=== PATIENT | male | born 1950 | race Caucasian/White ===

== ENCOUNTER 2019-10-23 10:24 | Day surgery (SDC) | payer OTHER ==
[~2019-10-23] VITALS: Ht 172.7 cm; Wt 88.0 kg
[~2019-10-23 10:24] MED LIST: ZESTORETIC 20-121 E1 PO
[2019-10-23] MEDS ORDERED: ASPI81CH PO (11:48)
[2019-10-23] MEDS ORDERED: ZESTORETIC 20-1 EAC3 (11:49)
--- NOTE | 2019-10-23 12:53 | NUR ---
10/23/19 1253 Zena Silva History, Chart, Medications and Allergies reviewed before start of procedure. Patient confirms NPO status and agrees with scheduled surgery. PATIENT DETERMINED TO BE ASA APPROPRIATE FOR PROPOFOL SEDATION PRIOR TO START OF PROCEDURE BY DR. CORONADO. 3-LEAD EKG REVIEWED WITH PHYSICIAN PRIOR TO START OF PROCEDURE. MONITOR INTACT WITH CONTINUOUS PULSE OXIMETRY AND INTERMITTENT BP.
--- NOTE | 2019-10-23 13:48 | NUR ---
Patient up to Ambulate independently. Gait steady. Discharge instructions reviewed with patient. Patient verbalizes understanding. Copy given to patient to take home. Discharged via wheelchair to private car for ride home.
== END 2019-10-23 22:53 | disposition home or self-care (01) ==
LOC: ORSCMMR 10:24 → ORD 11:00 → ORSCMMR 22:53
PROVIDERS: Internal Medicine Gastroenterology
PROC: 0DBL8ZX Excision of Transverse Colon, Via Natural or Artificial Opening Endoscopic, Diagnostic (ICD-10-PCS; principal; 2019-10-23 11:00)
DX: Z12.11 Encounter for screening for malignant neoplasm of colon (principal); Z86.010 Personal history of colon polyps; D12.3 Benign neoplasm of transverse colon; E78.00 Pure hypercholesterolemia, unspecified; I10 Essential (primary) hypertension; Z79.82 Long term (current) use of aspirin; Z79.899 Other long term (current) drug therapy
CPT/HCPCS: 88305; J2704; J7120

== ENCOUNTER 2022-04-25 15:20 | Inpatient (IN) | payer OTHER, MEDICARE ==
[~2022-04-25] VITALS: Ht 172.7 cm; Wt 90.4 kg
[~2022-04-25 15:20] MED LIST changes: +ASPI81CH PO; +ZESTORETIC 20-1 EAC3
[2022-04-25] MEDS ORDERED: ATOR10 PO (15:44)
[2022-04-25 16:03] LABS: BASOPHILS PERCENT AUTO 1 % (0-2); EOSINOPHILS ABSOLUTE AUTO 0.23 K/mm3 (0.00-0.68); EOSINOPHILS PERCENT AUTO 2 % (0-6); Hematocrit 45.8 % (37.0-53.0); Hemoglobin 16.3 g/dL (13.5-17.5); IMMATURE GRAN ABSOLUTE AUTO 0.05 K/mm3 (0.00-0.10); IMMATURE GRAN PERCENT AUTO 0 % (0-1); LYMPHOCYTES ABSOLUTE AUTO 5.22 K/mm3 (0.84-5.20); LYMPHOCYTES PERCENT AUTO 39 % (21-46); MONOCYTES ABSOLUTE AUTO 0.93 K/mm3 (0.16-1.47); MONOCYTES PERCENT AUTO 7 % (4-13); Mean Corpuscular HGB 29.7 pg (26.0-34.0); Mean Corpuscular HGB Conc 35.6 g/dL (31.5-36.5); Mean Corpuscular Volume 84 fL (80-100); Mean Platelet Volume 8.9 fL (9.1-12.4); NEUTROPHILS ABSOLUTE AUTO 7.01 K/mm3 (1.96-9.15); NEUTROPHILS PERCENT AUTO 52 % (41-73); Platelet Count 207 K/mm3 (150-400); RDW Coefficient Variation 11.9 % (11.7-14.2); RDW Standard Deviation 36.2 fL (35.1-46.3); Red Blood Cell Count 5.48 M/mm3 (4.30-5.90); White Blood Cell Count 13.54 K/mm3 (4.00-11.30)
[2022-04-25 16:19] LABS: Albumin, Blood 3.6 g/dL (3.4-5.0); Albumin/Globulin Ratio 0.9 (0.8-1.8); Bilirubin, Total 0.8 mg/dL (0.1-1.0); Bun/Creatinine Ratio 16.1 (12.0-20.0); Calcium, Blood 9.1 mg/dL (8.5-10.1); Creatinine, Blood 0.99 mg/dL (0.60-1.20); Globulin, Blood 3.9 g/dL (2.2-4.0); Potassium, Blood 3.5 mmol/L (3.5-5.5); Total Protein, Blood 7.5 g/dL (6.4-8.2)
--- NOTE | 2022-04-25 18:54 | NUR ---
TRANSFER- RECIEVED PT FROM ED. FAMILY AT BEDSIDE. PT IS ALERT AND ORIENTED X4. SOB WITH EXCERTION. REPORT RECIEVED FROM BAL. PT ATE DINNER PER V.O. FROM DR. DIEHL FOR TRAY NOW AND CARDIAC DIET CHANGED TO START NOW. ON 3L NC. HAD TO INCREASE TO 6L AFTER PT WENT TO BATHROOM. BED IN THE LOWEST POSITION WITH CALL LIGHT NEAR BY.
--- NOTE | 2022-04-25 20:31 | NUR ---
[facility] OF 1046 CALLED FROM LAB. NOTIFIED. SEE NEW ORDERS FOR HEP DRIP. PATIENT IS ASYMPTOMATIC.
[2022-04-25 21:43] LABS: International Normalized Ratio 1.19; Prothrombin Time Results 12.4 Sec (9.7-11.5)
[2022-04-25] MEDS ORDERED: POTCHL20ER PO (22:49)
--- NOTE | 2022-04-26 03:25 | NUR ---
TRANSFER NOTE PATIENT WAS TRANSFEREED TO PCU ALERT AND ORIENTED X4, SOB WITH MILD EXCERTION, LUNGS DIM WITH SHALLOW BREATHS. PATIENT WAS ON TELE, NS WITH SOME PAC'S AND PVC'S PER TECH. C/O CHEST PRESSURE 2/10, NAGGING, ACHING, LOOKED TO BE IN MORE DISCOMFORT THAN REPORTING. MD ORDERED NITRO SL, HOWEVER PT FOUND TO BE HYPOTENSIVE (NEG ORTHOSTATICS). BOLUS WAS ORDERED 1000 NS, TRANSFUSING DURRING TRANSFER. PER MD, IF BP DOES NOT RECOVER, CALL BACK STAT. IV INFUSING HEP DRIP. N/V TREATED PER MAY WITHOUT RESULTS. SKIN IS DUSKY AND COOL IN EXTREMITIES. AMBULATORY WITH STAND BY TO MANAGE LINES AND O2 NEEDS. REPORT GIVEN TO MANAGER ENERGY.
--- NOTE | 2022-04-26 04:25 | NUR ---
ASSUMED CARE NOTE: ASSUMED CARE OF PT AT 0312, PT IS ALERT AND ORIENTED X4. PT C/O CHEST PAIN 06/05, STATES IT BECOMES WORSE WHEN TAKING A DEEP BREATH, OR WHEN MOVING AND TALKING. HE DENIES ANY RADIATING PAIN. NOTIFIED OF PAIN SYMPTOMS, ORDERS FOR FENTANYL GIVEN. PT ON 4-6 LITERS OF OXYGEN VIA HIGH-FLOW NASAL CANNULA, SPO2 READING IS POOR PATIENT IS COOL AND DUSKY, AND POOR CAP REFILLL NOTED IN ALL EXTREMTIES. RR IN THE LOW 20'S. PT IN SR WITH HR IN THE 90'S, SBP 90-100'S. PT IS NAUSEATED, ORDER OBTAINED FOR REGLAN. URINAL AT BEDSIDE, WILL MAINTAIN PT NPO AND ON BEDREST. WILL CONTINUE WITH PLAN OF CARE.
[2022-04-26 07:14] LABS: BASOPHILS ABSOLUTE AUTO 0.02 K/mm3 (0.00-0.23); BASOPHILS PERCENT AUTO 0 % (0-2); EOSINOPHILS PERCENT AUTO 0 % (0-6); Hematocrit 40.3 % (37.0-53.0); Hemoglobin 14.5 g/dL (13.5-17.5); IMMATURE GRAN ABSOLUTE AUTO 0.08 K/mm3 (0.00-0.10); IMMATURE GRAN PERCENT AUTO 1 % (0-1); LYMPHOCYTES ABSOLUTE AUTO 1.61 K/mm3 (0.84-5.20); LYMPHOCYTES PERCENT AUTO 10 % (21-46); MONOCYTES ABSOLUTE AUTO 0.88 K/mm3 (0.16-1.47); MONOCYTES PERCENT AUTO 6 % (4-13); Mean Corpuscular HGB 30.3 pg (26.0-34.0); Mean Corpuscular Volume 84 fL (80-100); NEUTROPHILS ABSOLUTE AUTO 13.38 K/mm3 (1.96-9.15); NEUTROPHILS PERCENT AUTO 84 % (41-73); Platelet Count 181 K/mm3 (150-400); RDW Coefficient Variation 12.3 % (11.7-14.2); RDW Standard Deviation 37.4 fL (35.1-46.3); Red Blood Cell Count 4.79 M/mm3 (4.30-5.90); White Blood Cell Count 15.97 K/mm3 (4.00-11.30)
[2022-04-26 07:30] LABS: Bun/Creatinine Ratio 19.8 (12.0-20.0); Calcium, Blood 8.2 mg/dL (8.5-10.1); Creatinine, Blood 1.16 mg/dL (0.60-1.20); Potassium, Blood 3.8 mmol/L (3.5-5.5)
--- NOTE | 2022-04-26 14:50 | NUR ---
PT ARRIVED TO ICU 11 FROM PCU 6. PT ALERT AND ORIENTED AT TIEM OF ARRIVAL, ALTHOUGH PALE AND SWEATY, BREATHING WITH A RATE IN THE 30-40S AND HAVING DIFFICULTY SPEAKING. PT HYPOTENSIVE WITH SBP IN THE 70S, MAP AT 60. DR. INFANTE NOTIFIED OF PT'S ARRIVAL AND HYPOTENSION. ORDER RECEIVED FOR 500ML BOLUS AND TO START LEVOPHED. BOLUS GOING AND LOW DOSE LEVOPHED STARTED PERIPHERALLY THROUGH IV IN THE R AC WITH GOOD BLOOD RETURN. AFTER GETTING SETTLED PT'S RESPIRATORY RATE IS IN THE 30S, STILL HAS DIFFICULTY TALKING IN LONG SENTENCES AND PALE, BUT NOT DIAPHORETIC. DR. INFANTE ORDERED TPA, GOT CONSENT FROM PT AND DISCUSSED IT WITH PT'S . POWERGLIDE BEING PLACED CURRENTLY FOR ADMINISTRATION PT'S OTHER IV DOES NOT HAVE BLOOD RETURN. PT'S LUNGS ARE CLEAR, ON 4L/NC. SR, NO EDEMA.
--- NOTE | 2022-04-26 16:43 | NUR ---
SHIFT SUMMARY PT CONTINUES ON LOW DOSE LEVOPHED FOR BP SUPPORT, SEE FLOWSHEET AND 4L/NC. HE REMAINS PALE AND A LITTLE DIAPHORETIC. RR IN THE 30S SPO2 93%. LUNGS ARE CLEAR. SR. NO VOID SINCE TRANSFER HERE. TPA HAS ABOUT 20 MINTUES LEFT ON ADMINISTRATION. MULTIPLE FAMILY MEMBERS HAVE BEEN AT THE BEDSIDE AND UPDATED. PLAN IS FOR PROCEDURE WITH DR. MCGOVERN AFTER 1800.
--- NOTE | 2022-04-26 19:33 | NUR ---
DOCTOR FROILAN IN TO SEE PATIENT, PATIENT VERBALIZED FEELING IF HE IS BREATHING BETTER. LEVOPHED TITRATED OFF. OXYGEN 4L/NC. APPEARS SOB WITH TALKING. TO FACILITY ADMINISTRATOR WITH FAMILY.
--- NOTE | 2022-04-26 21:18 | NUR ---
PATIENT BACK FROM FLIGHT RESERVATIONS MANAGER. RIGHT GROIN WITH FLOWSTASIS IN PLACE AREA SOFT AND NO SWELLING OR OOZING SEEN. PATIENT VERBALIZED UNDERSTANDING OF MIN GROIN FLEXION DUE TO FLOWSTASIS IN PLACE. PLAN TO RESTART HEPARIN PER PHARMACY, AWAITING ORDERS FROM PHARMACY. PATIENT VERBALIZED THAT HE IS FEELING BETTER, ONLY SLIGHT PAIN WITH DEEP BREATH. LEVOPHED REMAINS OFF.
--- NOTE | 2022-04-27 06:40 | NUR ---
SUMMARY PATIENT SLEEPING OFF AND ON T/O NIGHT. NO FURTHER C/O CHEST PAIN WITH DEEP BREATHS. FLOWSTASIS TO RIGHT GROIN NO OOZING OR SWELLING SEEN. LEVOPHED REMAINS OFF. HEPARIN 12 UNITS/KG/HR PER PHARMACY.
--- NOTE | 2022-04-27 09:44 | NUR ---
ASSUMED CARE OF PATIENT THIS AM AT 0700, HE DENIED ANY COMPLAINTS AT THE TIME. HE DOES STATE THAT HE STILL NOTICES TIGHTNESS IN HIS CHEST BUT IS NO LONGER UNCOMFORTABLE. HIS OXYGEN IS REMOVED AND ON ROOM AIR HIS SATS ARE 94%. HE SHARED WITH DR. MIMS THAT HE DOESN'T HAVE ANY TROUBLE WITH SLEEPING AND THAT HIS SNORES, HE DOESN'T FEEL LIKE HAVING SLEEP APNEA IS AN ISSUE. HIS BREATHING IS EVEN, LOOKS LIKE HE IS WORKING AT GETTING A DEEP BREATH BUT DENIES ANY DIFFICULTY. RIGHT GROIN SITE IS C/D/I WITH FLOWSTASIS IN PLACE, VERIFIED WITH CRO PROTOCOL FOR DISCONTINUING AND THEY STATED USUALLY 2-4 HOURS POST PROCEDURE. SITE ASSESSED AGAIN, TOGGLE LOOSENED, NO EVIDENCE OF BLEEDING. SUTURE CUT AND DEVICE REMOVED. PRESSURE HELD FOR 2 MINUTES, WITH CLEAN 2X2 PLACED WITH OPSITE DRESSING. PT REMINDED TO NOTIFY STAFF IF HE FEELS THAT THE GROIN SITE IS BLEEDING OR OOZING IS NOTED. ALSO ASKED TO PLEASE NOTIFY STAFF BEFORE GETTING UP FOR THE FIRST TIME.
--- NOTE | 2022-04-27 09:51 | NUR ---
LATE ENTRY: MAGDIEL AGREED TO ALLOW A STUDENT NURSE TO CARE FOR HIM TODAY.
--- NOTE | 2022-04-27 12:12 | NUR ---
PATIENT UP IN ROON FOR LUNCH, ONE PERSON MINIMAL ASSISST. PT TOLERATED TRANSFER WELL, NO DROP IN OXYGEN SATURATION NOTED.
--- NOTE | 2022-04-27 17:01 | NUR ---
ROOM AVAILABLE FOR PATIENT ON MEDICAL FLOOR, BENY ANDREWS RN WILL BE TAKING THE PATIENT. SN CARROLL TO GIVE REPORT. MAGDIEL CONTINUES UP IN THE CHAIR WITH THE HEPARIN GTT @ 14U/HR. HE HAS HAD A FEW VISITORS TODAY AND HAS BEEN WITHOUT ANY COMPLAINTS. HE CONTINUES ON ROOM AIR WITHOUT ANY DYSPNEA. HIS TEMPERATURE THIS AFTERNOON WAS INCREASING AND PT WAS EDUCATED ABOUT DEEP BREATHING AND COUGHING. HE WAS VERY RECEPTIVE AND DEMONSTRATED GOOD UNDERSTANDING. WILL CONTINUE TO TREAT.
--- NOTE | 2022-04-27 17:34 | NUR ---
REPORT GIVEN TO BENY SHAH, [facility] FLOOR NURSE WHO WILL BE ASSUMING CARE OF PATIENT. ALL QUESTIONS ANSWERED. PT EATING DINNER TRAY, WILL TRANSFER UPON COMPLETION.
--- NOTE | 2022-04-27 19:35 | NUR ---
SHIFT SUMMARY- PT ARRIVED ON MEDICAL FLOOR WITH HEPARIN DRIP RUNNING AT 1800. PER DR MIMS'S NOTE THE PLAN IS TO TRANSITION TO PO ANTICOAGULATION. CALLED DR MIMS TO CONFIRM AND RECIEVED ORDERS TO START XERALTO AND DC HEPARIN DRIP PER PHARMACY. SPOKE TO JAXSON SHIELDS AND ABOUT THIS ORDER. PER PHARMACY HEPARIN DRIP IS TO BE DC'D AT THE TIME THE FIRST DOSE OF XERALTO IS GIVEN. DURRING BEDSIDE REPORT NIGHT BART REECE ADMINISTERED THE PO XERALTO AND THIS RN DC'D THE HEPARIN, PHARMACY WAS NOTIFIED. PT IN BED SITTING UP NO S&S OF DISTRESS SO AT THE BEDSIDE. PT CURRENTLY ON ROOM AIR. PER REPORT FROM GRISTMILLER PT DESATTED LAST NIGHT AND WAS PLACED ON 3L O2 WHILE SLEEPING. NIGHT RN AWARE. BEDSIDE REPORT COMPLETED WITH NIGHT BART REECE.
--- NOTE | 2022-04-28 03:39 | NUR ---
SHIFT SUMMARY NOC ICU TRANSFER BEFORE SHIFT CHANGE. PT HEPARIN WAS D/C AND PT TRANSITIONED TO XARELTO PO. PT IS ON TELE RUNNING SINUS RHYTHM @ 60 BPM. PT HAS HAD NO C/O OF SOB DURING SHIFT. 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 PT HAS LLE DVT AND REPORTS NO PAIN OR DISCOMFORT FROM SITE. PT HAS DRESSING OVER THROMBECTOMY INSERTION SITE WHICH IS FREE FROM S/SX OF INFECTION. PT HAD LLE ULTRASOUND PERFORMED, STILL AWAITING RESULTS. PT WAS PLEASANT AND COOPERATIVE WITH CARE. PT IS CURRENTLY RESTING WITH BED IN LOWEST POSITION, AND CALL LIGHT WITHIN REACH. WCTM.
[2022-04-28] MEDS ORDERED: XARELTO20 MG PO ×2 (11:09→11:10)
--- NOTE | 2022-04-28 11:37 | NUR ---
DISCHARGE SUMMARY DISCHARGE, FOLLOWUP AND MEDICATION INSTRUCTIONS GIVEN TO PATIENT. PT VOICED COMPLETE UNDERSTANDING AND HAS NO QUESTIONS AT THIS TIME. IV'S REMOVED WITH CATHETER TIP INTACT. TELE BOX REMOVED AND SENT TO MONITOR. CONTINUE TO MONITOR UNTIL RIDE ARRIVES. CALL LIGHT WITHIN REACH.
== END 2022-04-28 12:30 | disposition home or self-care (01) | DRG 163 ==
LOC: ER 15:20 → PCU 17:27 → MEDS 17:27 → PCU 04-26 03:20 → ICUW 04-26 13:56 → MEDS 04-27 17:54
PROVIDERS: Family Medicine; Internal Medicine; Physician Assistant; ADMIT Hospitalist
PROC: 3E02340 Introduction of Influenza Vaccine into Muscle, Percutaneous Approach (ICD-10-PCS; 2022-04-25)
PROC: 3E033XZ Introduction of Vasopressor into Peripheral Vein, Percutaneous Approach (ICD-10-PCS; principal; 2022-04-26)
PROC: 3E03317 Introduction of Other Thrombolytic into Peripheral Vein, Percutaneous Approach (ICD-10-PCS; 2022-04-26)
PROC: 02CP3ZZ Extirpation of Matter from Pulmonary Trunk, Percutaneous Approach (ICD-10-PCS; 2022-04-28)
PROC: 02CQ3ZZ Extirpation of Matter from Right Pulmonary Artery, Percutaneous Approach (ICD-10-PCS; 2022-04-28)
PROC: 02CR3ZZ Extirpation of Matter from Left Pulmonary Artery, Percutaneous Approach (ICD-10-PCS; 2022-04-28)
DX: I26.92 Saddle embolus of pulmonary artery without acute cor pulmonale (principal); I21.A1 Myocardial infarction type 2; J96.01 Acute respiratory failure with hypoxia; R57.9 Shock, unspecified; I82.432 Acute embolism and thrombosis of left popliteal vein; I82.452 Acute embolism and thrombosis of left peroneal vein; I82.412 Acute embolism and thrombosis of left femoral vein; I10 Essential (primary) hypertension; Z23 Encounter for immunization; E78.5 Hyperlipidemia, unspecified; M19.90 Unspecified osteoarthritis, unspecified site; Z90.49 Acquired absence of other specified parts of digestive tract; Z98.890 Other specified postprocedural states; Z79.82 Long term (current) use of aspirin; Z79.899 Other long term (current) drug therapy
CPT/HCPCS: 36415; 37184; 37185; 71046; 71260; 75743; 75820; 75825; 76937; 80048; 80053; 83735; 83880; 84484; 85025; 85347; 85610; 85730; 90686; 93005; 93010; 93306; 93970; 93971; 94640; 94664; 94760; 96374-59; 99152; 99153; 99285-25; A9270; C1751; C1757; C1769; C1887; C1894; J1644; J2405; J2765; J2997; J3010; J7030; J7040; J7050; J7060; Q9967

== ENCOUNTER 2025-02-02 07:43 | Day surgery (SDC) | payer OTHER, MEDICARE ==
[~2025-02-02] VITALS: Ht 175.3 cm; Wt 87.8 kg
[2025-02-02] VITALS (16 sets, daily range): BP systolic 107–1054; BP diastolic 63–97
[~2025-02-02 07:43] MED LIST changes: +ATOR10 PO; +POTCHL20ER PO; +XARELTO20 MG PO
--- NOTE | 2025-02-02 08:08 | NUR ---
Ambulatory in Day Surgery History, Chart, Medications and Allergies reviewed before start of procedure. Pre-Op teaching done. Pt verbalizes understanding. Patient States Post-Procedure ride home has been arranged.
--- NOTE | 2025-02-02 08:29 | NUR ---
02/02/25 0829 Zena Silva CONFIRMED AND REVIEWED H&P, MEDCICATIONS, ALLERGIES, MEDICAL HISTORY, RESPIRATORY HISTORY, VITAL SIGNS, 3-LEAD EKG, CONSENTS, AND PHYSICIAN ORDERS. PATIENT CONFIRMS NPO STATUS AND AGREES WITH SCHEDULED PROCEDURE. MONITOR INTACT WITH CONTINUOUS PULSE OXIMETRY, CAPNOGRAPHY, 3-LEAD EKG, INTERMITTENT BP. SUPPLEMENTAL O2 TO BE TITRATED THROUGHOUT PROCEDURE TO MAINTAIN O2 SATURATION ABOVE 90%. PATIENT DETERMINED TO BE ASA APPROPRIATE FOR PROPOFOL SEDATION PRIOR TO START OF PROCEDURE BY DR. CORONADO. MALLAMPATI CLASS 2 AIRWAY: COMPLETE VISUALIZATION OF THE UVULA.
--- NOTE | 2025-02-02 09:06 | NUR ---
Patient up to Ambulate independently. Gait steady. Discharge instructions reviewed with patient. Patient verbalizes understanding. Copy given to patient to take home. Pt's at bedside who is providing transportation via private vehicle home. IV removed. Pt denies pain or nausea. Discharged via wheelchair to private car for ride home.
== END 2025-02-02 09:14 | disposition home or self-care (01) ==
LOC: ORSCMMR 07:43 → ORD 14:15
PROVIDERS: Internal Medicine Gastroenterology
PROC: 0DBM8ZX Excision of Descending Colon, Via Natural or Artificial Opening Endoscopic, Diagnostic (ICD-10-PCS; principal; 2025-02-02 08:30)
PROC: 0DBK8ZX Excision of Ascending Colon, Via Natural or Artificial Opening Endoscopic, Diagnostic (ICD-10-PCS; principal; 2025-02-02 08:30)
DX: Z12.11 Encounter for screening for malignant neoplasm of colon (principal); D12.2 Benign neoplasm of ascending colon; D12.4 Benign neoplasm of descending colon; Z86.0101 Personal history of adenomatous and serrated colon polyps; Z86.0102 Personal history of hyperplastic colon polyps; D68.51 Activated protein C resistance; I10 Essential (primary) hypertension; Z86.718 Personal history of other venous thrombosis and embolism; Z86.711 Personal history of pulmonary embolism; Z79.01 Long term (current) use of anticoagulants; Z79.899 Other long term (current) drug therapy
CPT/HCPCS: 88305; J2704; J7120